=== PATIENT | male | born 1985 | race Hispanic/Latino ===

== ENCOUNTER 2020-05-17 01:44 | Emergency (ER) | payer SELFPAY ==
[2020-05-17] MEDS ORDERED: MECLIZINE HCL 25 MG TABLET ONE (02:12)
[2020-05-17 02:23] LABS: BASOPHILS % (AUTO) 0.7 % (0.0-5.0); EOSINOPHILS % (AUTO) 6.7 % (0.0-8.0); HEMATOCRIT 41.1 % (42-54); LYMPHOCYTES % (AUTO) 36.4 % (21.0-51.0); MEAN CORPUSCULAR HEMOGLOBIN 30.2 pg (27.0-33.0); MEAN CORPUSCULAR HGB CONC 33.3 g/dL (32.0-36.0); MEAN CORPUSCULAR VOLUME 90.7 fL (79-99); MONOCYTES % (AUTO) 7.8 % (3.0-13.0); NEUTROPHILS % (AUTO) 47.5 % (40.0-77.0); PLATELET COUNT (AUTO) 310 K/uL (130-400); RED BLOOD CELL COUNT(AUTO) 4.53 MIL/uL (4.50-6.20); RED CELL DISTRIBUTION WIDTH 12.3 % (11.0-15.5); WHITE BLOOD COUNT (AUTO) 7.6 K/uL (4.8-10.8)
[2020-05-17 02:37] LABS: CREATININE 1.1 mg/dL (0.5-1.5); POTASSIUM 3.7 mmol/L (3.5-5.1)
[2020-05-17 02:42] LABS: ALBUMIN 4.1 g/dL (3.5-5.0); BILIRUBIN,TOTAL 0.3 mg/dL (0.2-1.0); TOTAL PROTEIN, SERUM 7.8 g/dL (6.0-8.3)
== END 2020-05-17 04:00 | disposition home or self-care (01) ==
LOC: EDH 01:44
DX: A88.1 Epidemic vertigo (principal); Z72.0 Tobacco use
CPT/HCPCS: 93005

== ENCOUNTER 2021-02-02 02:22 | Inpatient (IN) | payer SELFPAY ==
[~2021-02-02] VITALS: Ht 172.7 cm; Wt 81.6 kg
[2021-02-02] VITALS (18 sets, daily range): BP systolic 111–146; BP diastolic 64–110
[2021-02-02] MEDS ORDERED: MORPHINE 2 MG SYG IVP ONE (03:30)
[2021-02-02] MEDS ORDERED: ONDANSETRON 4MG INJ IVP ONE (03:30)
[2021-02-02] MEDS ORDERED: 0.9%NACL 1000ML 1,000 ML IV ONE ×2 (03:30→07:45)
[2021-02-02 03:43] LABS: APPEARANCE,URINE Clear (CLEAR); BASOPHILS % (AUTO) 0.2 % (0.0-5.0); BILIRUBIN,URINE Negative (NEGATIVE); COLOR,URINE Yellow (YELLOW); EOSINOPHILS % (AUTO) 0.1 % (0.0-8.0); GLUCOSE, URINE (UA) Negative (NEGATIVE); HEMATOCRIT 44.4 % (42-54); KETONES,URINE Negative (NEGATIVE); LEUKOCYTE ESTERASE ,URINE Negative (NEGATIVE); LYMPHOCYTES % (AUTO) 6.2 % (21.0-51.0); MEAN CORPUSCULAR HEMOGLOBIN 30.7 pg (27.0-33.0); MEAN CORPUSCULAR HGB CONC 33.6 g/dL (32.0-36.0); MEAN CORPUSCULAR VOLUME 91.4 fL (79-99); MONOCYTES % (AUTO) 5.9 % (3.0-13.0); NEUTROPHILS % (AUTO) 86.9 % (40.0-77.0); NITRATE,URINE Negative (NEGATIVE); OCCULT BLOOD,URINE Negative (NEGATIVE); PH,URINE 5.5 (5.0-8.0); PLATELET COUNT (AUTO) 308 K/uL (130-400); PROTEIN,URINE Trace mg/dL (NEGATIVE); RED BLOOD CELL COUNT(AUTO) 4.86 MIL/uL (4.50-6.20); RED CELL DISTRIBUTION WIDTH 13.2 % (11.0-15.5); WHITE BLOOD COUNT (AUTO) 19.4 K/uL (4.8-10.8)
[2021-02-02 03:52] LABS: CARBON DIOXIDE 24 mmol/L (21-32); CHLORIDE 101 mmol/L (101-111); CREATININE 1.1 mg/dL (0.5-1.5); GLOMERULAR FILTR. RATE CALC 80 mL/min (>60); GLUCOSE,RANDOM 141 mg/dL (70-105); POTASSIUM 3.9 mmol/L (3.5-5.1); SODIUM SERUM 137 mmol/L (136-145); UREA NITROGEN, BLOOD 15 mg/dL (7-18)
[2021-02-02 03:56] LABS: ALANINE AMINOTRANSFERASE 49 U/L (12-78); ALBUMIN 4.5 g/dL (3.5-5.0); ASPARTATE AMINOTRANSFERASE 19 U/L (10-37); BILIRUBIN,TOTAL 1.1 mg/dL (0.2-1.0); TOTAL PROTEIN, SERUM 8.5 g/dL (6.0-8.3)
[2021-02-02 03:58] LABS: LIPASE < 50 U/L (114-286)
[2021-02-02] MEDS ORDERED: ACETAMINOPHEN 500 MG TABLET PO ONE (04:00)
[2021-02-02 04:05] LABS: RBC,URINE None Seen /HPF (0-1)
[2021-02-02 04:06] LABS: BACTERIA,URINE Rare /HPF (None Seen); WBC,URINE 0-1 /HPF (0-1)
[2021-02-02] MEDS ORDERED: IOHEXOL 350 MG/ML 100ML INFUS..BTL IV ONE (04:25)
[2021-02-02] MEDS ORDERED: ZOSYN 3.375GM+NS 50ML 3.38 GM in 0.9%NACL 50ML 50 ML IV ONE (05:30)
[2021-02-02] MEDS ORDERED: ZOSYN 3.375GM+NS 50ML 50 ML ONE (05:47)
[2021-02-02] MEDS ORDERED: POTASSIUM CHLORIDE 10MEQ/100ML 100 ML IV ONE (08:48)
[2021-02-02] MEDS ORDERED: MORPHINE 2 MG SYG ONE (09:22)
[2021-02-02] MEDS: MORPHINE 2 MG SYG IVP SCH ×2 (09:30→11:10)
[2021-02-02] MEDS ORDERED: MORPHINE 2 MG SYG IVP PRN (11:30)
[2021-02-02] MEDS ORDERED: LACTULOSE 20 GM/30 ML UDCUP PO PRN (11:30)
[2021-02-02] MEDS: LACTATED RINGERS 1000ML 1,000 ML IV SCH ×3 (11:30→21:53)
[2021-02-02] MEDS ORDERED: ONDANSETRON 4MG INJ IVP PRN ×2 (11:30→16:00)
[2021-02-02] MEDS ORDERED: ACETAMINOPHEN 325 MG TAB PO PRN (11:30)
[2021-02-02 13:00] LABS: CRP QUANTITATIVE 140.5 mg/L (0.00-9.0)
[2021-02-02] MEDS: ZOSYN 3.375GM+NS 50ML 50 ML IV SCH ×2 (13:33→21:21)
[2021-02-02] MEDS ORDERED: ZOSYN 3.375GM+NS 50ML 3.38 GM in 0.9%NACL 50ML 50 ML IV SCH (14:00)
[2021-02-02] MEDS ORDERED: 0.9%NACL 100ML 100 ML ONE (14:08)
[2021-02-02] MEDS ORDERED: BUPIVACAINE/PF 0.5% 30ML VIAL ONE (14:35)
[2021-02-02] MEDS ORDERED: PROPOFOL 10 MG/ML 20ML VIAL IV ONE (15:05)
[2021-02-02] MEDS ORDERED: FENTANYL CITRATE PF 50 MCG/1 ML 2ML VIAL ONE ×2 (15:05→15:54)
[2021-02-02] MEDS ORDERED: SUCCINYLCHOLINE CHLORIDE 20 MG/ML 10 ML VIAL ONE (15:05)
[2021-02-02] MEDS ORDERED: MIDAZOLAM HCL 1 MG/ML 2ML VIAL ONE (15:05)
[2021-02-02] MEDS ORDERED: ROCURONIUM 10MG/1ML SYR 10 MG/ML ML ONE (15:05)
[2021-02-02] MEDS ORDERED: LIDOCAINE PF 100MG/5ML (2%) SYRINGE 5ML ONE (15:05)
[2021-02-02] MEDS ORDERED: ONDANSETRON 4MG INJ ONE (15:13)
[2021-02-02] MEDS ORDERED: DEXAMETHASONE SOD PHOSPHATE 4 MG/ML 1ML VIAL ONE (15:13)
[2021-02-02] MEDS ORDERED: NEOSTIGMINE 5MG/5ML SYR IV ONE (15:33)
[2021-02-02] MEDS ORDERED: GLYCOPYRROLATE 1 MG/5 ML SYRINGE ONE (15:33)
[2021-02-02] MEDS ORDERED: KETOROLAC 30MG VIAL (30MG/ML) IM PRN (16:00)
[2021-02-02] MEDS ORDERED: ZOSYN 3.375GM+NS 50ML 50 ML IV SCH (21:00)
[2021-02-02] MEDS: FAMOTIDINE 20MG VIAL IV SCH (21:21)
[2021-02-03] VITALS: BP 116/60
[2021-02-03 04:00] VITALS: BP 102/58
[2021-02-03] MEDS: ZOSYN 3.375GM+NS 50ML 50 ML IV SCH ×2 (06:01→13:16)
[2021-02-03 06:13] LABS: BASOPHILS % (AUTO) 0.1 % (0.0-5.0); EOSINOPHILS % (AUTO) 0.1 % (0.0-8.0); HEMATOCRIT 38.3 % (42-54); LYMPHOCYTES % (AUTO) 8.8 % (21.0-51.0); MEAN CORPUSCULAR HEMOGLOBIN 30.6 pg (27.0-33.0); MEAN CORPUSCULAR HGB CONC 33.2 g/dL (32.0-36.0); MEAN CORPUSCULAR VOLUME 92.3 fL (79-99); NEUTROPHILS % (AUTO) 82.4 % (40.0-77.0); PLATELET COUNT (AUTO) 256 K/uL (130-400); RED BLOOD CELL COUNT(AUTO) 4.15 MIL/uL (4.50-6.20); RED CELL DISTRIBUTION WIDTH 13.4 % (11.0-15.5); WHITE BLOOD COUNT (AUTO) 14.1 K/uL (4.8-10.8)
[2021-02-03 06:22] LABS: ALBUMIN 3.2 g/dL (3.5-5.0); BILIRUBIN,TOTAL 0.9 mg/dL (0.2-1.0); POTASSIUM 4.1 mmol/L (3.5-5.1)
[2021-02-03] MEDS: HYDROCODONE/ACETAMINOPHEN 5/325 MG TAB PO PRN ×2 (06:44→14:30)
[2021-02-03] MEDS: LACTATED RINGERS 1000ML 1,000 ML IV SCH ×2 (08:00)
[2021-02-03 08:11] VITALS: BP 109/70
[2021-02-03] MEDS: FAMOTIDINE 20MG VIAL IV SCH (08:43)
[2021-02-03] MEDS ORDERED: ENOXAPARIN SODIUM 30 MG/0.3 ML SQ SCH (09:00)
[2021-02-03 11:25] VITALS: BP 119/57
[2021-02-03 11:37] LABS: HEMATOCRIT 38.4 % (42-54); MEAN CORPUSCULAR HEMOGLOBIN 30.9 pg (27.0-33.0); MEAN CORPUSCULAR HGB CONC 32.6 g/dL (32.0-36.0); MEAN CORPUSCULAR VOLUME 94.8 fL (79-99); RED BLOOD CELL COUNT(AUTO) 4.05 MIL/uL (4.50-6.20); RED CELL DISTRIBUTION WIDTH 13.5 % (11.0-15.5); WHITE BLOOD COUNT (AUTO) 13.5 K/uL (4.8-10.8)
[2021-02-03] MEDS ORDERED: AMOX-426 PO (13:52)
[2021-02-03 16:17] VITALS: BP 123/64
== END 2021-02-03 19:26 | disposition home or self-care (01) | DRG 854 ==
LOC: EDH 02:22 → EDHIP 02:23 → 3CH 18:52
PROVIDERS: ADMIT Hospitalist; ATTEND Hospitalist
PROC: 0DTJ4ZZ Resection of Appendix, Percutaneous Endoscopic Approach (ICD-10-PCS; principal; 2021-02-02 15:30)
DX: A41.9 Sepsis, unspecified organism (principal); K35.80 Unspecified acute appendicitis; Z20.822 Contact with and (suspected) exposure to COVID-19
CPT/HCPCS: 36415; 74177; 80053; 80190; 81001; 83605; 83690; 85025; 85027; 86140; 87040; 87088; 87635; G0378; J0330; J1100; J1650; J2001; J2250; J2405; J2543; J2704; J2710; J3010; J3490; J7030; J7120; Q9967

== ENCOUNTER 2021-02-06 06:51 | Inpatient (IN) | payer SELFPAY ==
[~2021-02-06] VITALS: Ht 172.7 cm; Wt 78.0 kg
[~2021-02-06 06:51] MED LIST: AMOX-426 PO; KETOROLAC 30MG VIAL (30MG/ML) ONE
[2021-02-06] MEDS ORDERED: MORPHINE 4 MG SYG ONE ×2 (07:20→10:48)
[2021-02-06] MEDS ORDERED: ONDANSETRON 4MG INJ ONE (07:20)
[2021-02-06] MEDS ORDERED: ONDANSETRON 4MG INJ IVP ONE (07:30)
[2021-02-06] MEDS ORDERED: MORPHINE 4 MG SYG IV ONE (07:30)
[2021-02-06 07:57] LABS: HEMATOCRIT 45.9 % (42-54); MEAN CORPUSCULAR HEMOGLOBIN 30.3 pg (27.0-33.0); MEAN CORPUSCULAR HGB CONC 33.6 g/dL (32.0-36.0); MEAN CORPUSCULAR VOLUME 90.4 fL (79-99); RED BLOOD CELL COUNT(AUTO) 5.08 MIL/uL (4.50-6.20); RED CELL DISTRIBUTION WIDTH 12.9 % (11.0-15.5)
[2021-02-06 08:09] LABS: ALBUMIN 3.7 g/dL (3.5-5.0); BILIRUBIN,TOTAL 0.9 mg/dL (0.2-1.0); POTASSIUM 4.3 mmol/L (3.5-5.1); TOTAL PROTEIN, SERUM 8.9 g/dL (6.0-8.3)
[2021-02-06] MEDS ORDERED: MORPHINE 4 MG SYG IV SCH (11:00)
[2021-02-06] MEDS ORDERED: MAGNESIUM 2GM PREMIX 50ML 50 ML IV PRN (14:30)
[2021-02-06] MEDS ORDERED: NITROGLYCERIN 0.4 MG SL TAB SL PRN (14:30)
[2021-02-06] MEDS ORDERED: ONDANSETRON 4MG INJ IV PRN (14:30)
[2021-02-06] MEDS ORDERED: CEFTRIAXONE 1G VIAL IV SCH (14:30)
[2021-02-06] MEDS: 0.9%NACL 1000ML 1,000 ML IV SCH (15:51)
[2021-02-06] MEDS: MORPHINE 2 MG SYG IV PRN (15:51)
[2021-02-06] MEDS: ZOSYN 3.375GM +NS 50ML IV SCH (18:58)
[2021-02-06] MEDS ORDERED: ZOSYN 3.375GM+NS 50ML 3.38 GM in 0.9%NACL 50ML 50 ML IV SCH (19:00)
[2021-02-06] MEDS: FAMOTIDINE 20MG VIAL IV SCH (20:41)
[2021-02-06] MEDS: KETOROLAC 15MG/ML VIAL (15MG/ML) IM PRN (20:41)
[2021-02-07] MEDS ORDERED: 0.9%NACL 50ML 50 ML IV ONE (01:24)
[2021-02-07] MEDS: ZOSYN 3.375GM +NS 50ML IV SCH ×3 (01:35→17:30)
[2021-02-07 03:15] VITALS: BP 113/60
[2021-02-07] MEDS: 0.9%NACL 1000ML 1,000 ML IV SCH ×2 (03:50→17:25)
[2021-02-07] MEDS: KETOROLAC 15MG/ML VIAL (15MG/ML) IM PRN (03:50)
[2021-02-07 07:05] VITALS: BP 109/66
[2021-02-07] MEDS: FAMOTIDINE 20MG VIAL IV SCH ×2 (09:41→19:36)
[2021-02-07 10:05] LABS: BASOPHILS % (AUTO) 0.7 % (0.0-5.0); HEMATOCRIT 40.7 % (42-54); LYMPHOCYTES % (AUTO) 22.8 % (21.0-51.0); MEAN CORPUSCULAR HEMOGLOBIN 30.1 pg (27.0-33.0); MEAN CORPUSCULAR HGB CONC 32.7 g/dL (32.0-36.0); MEAN CORPUSCULAR VOLUME 92.1 fL (79-99); NEUTROPHILS % (AUTO) 59.2 % (40.0-77.0); PLATELET COUNT (AUTO) 378 K/uL (130-400); RED BLOOD CELL COUNT(AUTO) 4.42 MIL/uL (4.50-6.20); RED CELL DISTRIBUTION WIDTH 12.8 % (11.0-15.5); WHITE BLOOD COUNT (AUTO) 8.2 K/uL (4.8-10.8)
[2021-02-07 10:30] LABS: ALBUMIN 3.2 g/dL (3.5-5.0); BILIRUBIN,TOTAL 0.6 mg/dL (0.2-1.0); CREATININE 1.1 mg/dL (0.5-1.5); CRP QUANTITATIVE 134.2 mg/L (0.00-9.0); MAGNESIUM 2.5 mg/dL (1.80-2.40); POTASSIUM 4.6 mmol/L (3.5-5.1); TOTAL PROTEIN, SERUM 7.7 g/dL (6.0-8.3)
[2021-02-07 11:05] VITALS: BP 104/57
[2021-02-07] MEDS ORDERED: DIATR MEGLU/DIATRIZOATE SODIUM 30 ML BOTTLE ONE (14:01)
[2021-02-07 15:05] VITALS: BP 110/58
[2021-02-07] MEDS ORDERED: IOHEXOL 350 MG/ML 100ML INFUS..BTL IV ONE (15:38)
[2021-02-07] MEDS: MORPHINE 2 MG SYG IV PRN (17:29)
[2021-02-07 19:48] VITALS: BP 121/62
[2021-02-07 23:56] VITALS: BP 103/54
[2021-02-08] MEDS: ZOSYN 3.375GM +NS 50ML IV SCH ×3 (02:27→17:33)
[2021-02-08 03:23] VITALS: BP 112/63
[2021-02-08] MEDS: 0.9%NACL 1000ML 1,000 ML IV SCH ×2 (06:25→19:59)
[2021-02-08 06:37] LABS: BASOPHILS % (AUTO) 0.9 % (0.0-5.0); EOSINOPHILS % (AUTO) 6.4 % (0.0-8.0); HEMATOCRIT 36.8 % (42-54); LYMPHOCYTES % (AUTO) 21.5 % (21.0-51.0); MEAN CORPUSCULAR HEMOGLOBIN 30.5 pg (27.0-33.0); MEAN CORPUSCULAR HGB CONC 32.6 g/dL (32.0-36.0); MEAN CORPUSCULAR VOLUME 93.4 fL (79-99); MONOCYTES % (AUTO) 7.9 % (3.0-13.0); NEUTROPHILS % (AUTO) 60.6 % (40.0-77.0); PLATELET COUNT (AUTO) 341 K/uL (130-400); RED BLOOD CELL COUNT(AUTO) 3.94 MIL/uL (4.50-6.20); RED CELL DISTRIBUTION WIDTH 12.5 % (11.0-15.5); WHITE BLOOD COUNT (AUTO) 7.5 K/uL (4.8-10.8)
[2021-02-08 07:05] VITALS: BP 107/60
[2021-02-08] MEDS: FAMOTIDINE 20MG VIAL IV SCH ×2 (08:04→19:59)
[2021-02-08 11:05] VITALS: BP 106/60
[2021-02-08 15:05] VITALS: BP 109/62
[2021-02-08 19:44] VITALS: BP 105/63
[2021-02-08 23:20] VITALS: BP 108/61
[2021-02-09] MEDS: ZOSYN 3.375GM +NS 50ML IV SCH ×3 (01:53→18:08)
[2021-02-09 03:49] VITALS: BP 107/58
[2021-02-09 07:05] VITALS: BP 105/55
[2021-02-09] MEDS: FAMOTIDINE 20MG VIAL IV SCH ×2 (08:57→19:45)
[2021-02-09] MEDS: 0.9%NACL 1000ML 1,000 ML IV SCH ×2 (08:59→22:06)
[2021-02-09 11:05] VITALS: BP 102/64
[2021-02-09 15:05] VITALS: BP 108/57
[2021-02-09 20:06] VITALS: BP 106/42
[2021-02-09 23:29] VITALS: BP 106/62
[2021-02-10] MEDS: ZOSYN 3.375GM +NS 50ML IV SCH ×3 (01:03→18:00)
[2021-02-10 04:12] VITALS: BP 101/64
[2021-02-10 06:59] LABS: BASOPHILS % (AUTO) 0.8 % (0.0-5.0); EOSINOPHILS % (AUTO) 5.5 % (0.0-8.0); HEMATOCRIT 39.6 % (42-54); LYMPHOCYTES % (AUTO) 32.5 % (21.0-51.0); MEAN CORPUSCULAR HEMOGLOBIN 30.4 pg (27.0-33.0); MEAN CORPUSCULAR HGB CONC 32.6 g/dL (32.0-36.0); MEAN CORPUSCULAR VOLUME 93.4 fL (79-99); MONOCYTES % (AUTO) 7.3 % (3.0-13.0); NEUTROPHILS % (AUTO) 50.9 % (40.0-77.0); PLATELET COUNT (AUTO) 424 K/uL (130-400); RED BLOOD CELL COUNT(AUTO) 4.24 MIL/uL (4.50-6.20); RED CELL DISTRIBUTION WIDTH 12.7 % (11.0-15.5)
[2021-02-10 07:14] LABS: CRP QUANTITATIVE 20.2 mg/L (0.00-9.0); POTASSIUM 4.2 mmol/L (3.5-5.1)
[2021-02-10 08:13] VITALS: BP 100/64
[2021-02-10 08:20] LABS: INR 1.02 (0.85-1.15); PROTHROMBIN TIME 11.1 SEC (9.6-11.6)
[2021-02-10 08:22] LABS: PARTIAL THROMBOPLASTIN TIME 26.9 SEC (26.3-35.5)
[2021-02-10] MEDS: FAMOTIDINE 20MG VIAL IV SCH (10:40)
[2021-02-10] MEDS: 0.9%NACL 1000ML 1,000 ML IV SCH (11:50)
[2021-02-10 11:59] VITALS: BP 99/52
[2021-02-10 16:00] VITALS: BP 104/48
[2021-02-10] MEDS ORDERED: AMOX-429 PO (16:54)
== END 2021-02-10 19:10 | disposition home or self-care (01) | DRG 603 ==
LOC: EDH 06:51 → EDHIP 06:52 → 3AH 23:35
PROVIDERS: ADMIT Internal Medicine; ATTEND Internal Medicine
DX: L02.211 Cutaneous abscess of abdominal wall (principal); K56.7 Ileus, unspecified; R18.8 Other ascites; D72.829 Elevated white blood cell count, unspecified; Z83.3 Family history of diabetes mellitus; Z90.49 Acquired absence of other specified parts of digestive tract
CPT/HCPCS: 36415; 74176; 74177; 80048; 80053; 83605; 83735; 84145; 85025; 85027; 85610; 85730; 86140; 87040; G0378; J0696; J1885; J2270; J2405; J2543; J3490; J7030; Q9963; Q9967

== ENCOUNTER 2023-03-21 05:06 | Emergency (ER) | payer OTHER, SELFPAY ==
[~2023-03-21] VITALS: Ht 170.2 cm; Wt 77.1 kg
[~2023-03-21 05:06] MED LIST changes: -AMOX-426 PO; +AMOX-429 PO; -KETOROLAC 30MG VIAL (30MG/ML) ONE
[2023-03-21 05:07] VITALS: BP 142/70; PULSE 91; RESP 20
[2023-03-21] MEDS ORDERED: 0.9%NACL 1000ML 1,000 ML IV SCH (05:30)
[2023-03-21] MEDS ORDERED: ONDANSETRON 4MG INJ IVP ONE (05:30)
[2023-03-21 05:34] LABS: BASOPHILS # (AUTO) 0.06 K/uL (0.00-0.20); BASOPHILS % (AUTO) 0.7 % (0.0-5.0); EOSINOPHILS # (AUTO) 0.41 K/uL (0.00-0.70); EOSINOPHILS % (AUTO) 4.7 % (0.0-8.0); HEMATOCRIT 42.4 % (42-54); IMMATURE GRANULOCYTE ABSOLUTE 0.04 K/uL (0-1); LYMPHOCYTES # (AUTO) 2.4 K/uL (1.0-4.8); LYMPHOCYTES % (AUTO) 27.6 % (21.0-51.0); MEAN CORPUSCULAR HEMOGLOBIN 31.7 pg (27.0-33.0); MEAN CORPUSCULAR HGB CONC 34.4 g/dL (32.0-36.0); MONOCYTES # (AUTO) 0.7 K/uL (0.1-1.0); MONOCYTES % (AUTO) 7.7 % (3.0-13.0); NEUTROPHILS # (AUTO) 5.1 K/uL (1.8-7.7); NEUTROPHILS % (AUTO) 58.8 % (40.0-77.0); PLATELET COUNT (AUTO) 307 K/uL (130-400); RED BLOOD CELL COUNT(AUTO) 4.61 MIL/uL (4.50-6.20); RED CELL DISTRIBUTION WIDTH 13.2 % (11.0-15.5); WHITE BLOOD COUNT (AUTO) 8.7 K/uL (4.8-10.8)
[2023-03-21 05:37] LABS: APPEARANCE,URINE CLEAR (CLEAR); BILIRUBIN,URINE NEGATIVE (NEGATIVE); COLOR,URINE COLORLESS (YELLOW); GLUCOSE, URINE (UA) NEGATIVE (NEGATIVE); KETONES,URINE NEGATIVE (NEGATIVE); LEUKOCYTE ESTERASE ,URINE NEGATIVE Leu/uL (NEGATIVE); NITRATE,URINE NEGATIVE (NEGATIVE); OCCULT BLOOD,URINE NEGATIVE (NEGATIVE); PH,URINE 5.5 (5.0-8.0); PROTEIN,URINE NEGATIVE (NEGATIVE); UROBILINOGEN,URINE 0.2 mg/dL (0.2-1.0)
[2023-03-21 05:38] LABS: ADD UA MICROSCOPIC NO
[2023-03-21 05:44] LABS: CREATININE 1.1 mg/dL (0.5-1.5); POTASSIUM 3.6 mmol/L (3.5-5.1)
[2023-03-21 05:48] LABS: ALBUMIN 4.2 g/dL (3.5-5.0); BILIRUBIN,TOTAL 0.5 mg/dL (0.2-1.0); MAGNESIUM 2.1 mg/dL (1.80-2.40); SARS-CoV-2, RNA, NAAT NEGATIVE SARS CoV-2 (NEGATIVE); TOTAL PROTEIN, SERUM 7.8 g/dL (6.0-8.3)
[2023-03-21 05:52] LABS: INFLUENZA TYPE A Negative For Type A (NEGATIVE); INFLUENZA TYPE B Negative For Type B (NEGATIVE)
[2023-03-21] MEDS ORDERED: DIPH1TAB PO (05:59)
[2023-03-21] MEDS ORDERED: ONDA-104 PO (05:59)
[2023-03-21] MEDS ORDERED: FAMO-136 PO (05:59)
== END 2023-03-21 06:12 | disposition home or self-care (01) ==
LOC: EDH 05:06
DX: E86.0 Dehydration (principal); R19.7 Diarrhea, unspecified; Z20.822 Contact with and (suspected) exposure to COVID-19; F17.200 Nicotine dependence, unspecified, uncomplicated; Z90.49 Acquired absence of other specified parts of digestive tract
CPT/HCPCS: 99283; 96374; 87635; 83735; 80053; 83690; 85025; 87804 ×2; 81003; 36415; C9803; J2405